=== PATIENT | female | born 1955 | race American Indian/Alaskan Native ===

== ENCOUNTER 2017-08-28 09:01 | Outpatient (CLI) | payer OTHER ==
--- NOTE | 2017-08-28 14:26 | XRay Report ---
XRAY LEFT SHOULDER THREE VIEWS: 09/07/17 CLINICAL: Left shoulder pain. FINDINGS: No fracture or dislocation. Moderate glenohumeral joint arthritis with a small inferior humeral osteophyte. Glenohumeral joint space narrowing and irregularity of the glenoid rim. Mild acromioclavicular joint arthritis. Normal soft tissues. IMPRESSION: Moderate glenohumeral joint arthritis and mild acromioclavicular joint arthritis.
== END 2017-08-28 09:02 | disposition home or self-care (01) ==
LOC: SPVIMAG 09:01
PROVIDERS: ATTEND Orthopaedic Surgery Sports Medicine
DX: M19.012 Primary osteoarthritis, left shoulder (principal)

== ENCOUNTER 2017-11-07 09:22 | Outpatient (CLI) | payer OTHER ==
--- NOTE | 2017-11-07 15:34 | Mammography Report ---
BONE DEXA:11/07/17 09:22:00 CLINICAL: Postmenopausal. No comparison. TECHNIQUE: Two site bone DEXA performed on an Hologic scanner. FINDINGS: The average BMD of the lumbar spine L1-L4 is 0.819g/cm squared with a T-score of -3.0 and a Z-score of -1.1. The average BMD of the left hip is 0.732g/cm squared with a T-score of -1.9 and a Z-score of -1.0. The left femoral neck BMD is 0.594g/cm squared with a T score of -2.5 and a Z score of -1.3. IMPRESSION: WHO classification: Osteoporosis with high fracture risk based on both spine and left hip measurements. RECOMMENDATION: Clinical correlation and routine screening. DEFINITIONS: BMD = Bone Mineral Density T-score = BMD related to mean peak bone mass of young adult (mean expressed in Standard Deviation) Z-score = Age matched BMD expressed in SD World Health Organization (WHO) Diagnostic Criteria Normal T-score > -1 SD Osteopenia T-score between -1 and -2.4 SD Osteoporosis T-score -2.5 SD or below NOTE: BMD is not the only risk factor for fracture. One should also consider factors such as the patient's age, risk of falling, previous osteoporotic fracture, family history of osteoporotic fractures, current smoker, and low body weight. Z-scores are not calculated if >80 years of age.
== END 2017-11-07 09:23 | disposition home or self-care (01) ==
LOC: SPVWC 09:22
PROVIDERS: ATTEND Family Medicine
DX: M81.0 Age-related osteoporosis without current pathological fracture (principal); F17.210 Nicotine dependence, cigarettes, uncomplicated; R63.4 Abnormal weight loss; Z78.0 Asymptomatic menopausal state
CPT/HCPCS: 77080

== ENCOUNTER 2020-01-29 10:13 | Outpatient (CLI) | payer MEDICARE ==
--- NOTE | 2020-01-29 11:26 | Mammography Report ---
DEXA BONE DENSITY SCAN INDICATION: OSTEOPOROSIS. COMPARISON: 11/07/2017 LUMBAR SPINE (L1-L4): Bone mineral density (BMD) is 0.825 g/cm2. T-score is -3.0 (standard deviations of Young Adult mean). Z-score is -0.9 (standard deviations of Age Matched mean). There is been a very slight increase in bone mineral density in this region since 2018. RIGHT FEMORAL NECK: Bone mineral density (BMD) is 0.785 g/cm2. T-score is -1.6 (standard deviations of Young Adult mean). Z-score is -0.5 (standard deviations of Age Matched mean). There is been a very slight increase in bone mineral density in this region since 2018. IMPRESSION: 1. WHO Classification: Osteoporosis. Fracture Risk: High. Signer Name: Bhupinder Osorio MD Signed: 01/29/2020 11:21 AM Workstation Name: [id number]
== END 2020-01-29 10:14 | disposition home or self-care (01) ==
LOC: SPVWC 10:13
PROVIDERS: ATTEND Family Medicine
DX: M81.0 Age-related osteoporosis without current pathological fracture (principal)
CPT/HCPCS: 77080